=== PATIENT | female | born 1965 | race Caucasian/White ===

== ENCOUNTER → 2016-07-14 | Outpatient (CLI) | payer OTHER ==
[~2016-07-14] MED LIST: AMIT10TA6 PO; BUTA1CAP17 PO; CLIN1SOL23 TOP; CYCL10TA6 PO; FLUC150T PO; NAPR-1169 PO; RIZA10TA19 PO; SUMA20SP; XNX25 PO
--- NOTE | 2016-07-15 12:58 | MAMMOGRAPHY REPORT ---
BILATERAL DIGITAL SCREENING MAMMOGRAM TOMOSYNTHESIS WITH CAD: 07/14/2016 CLINICAL HISTORY: Routine screening. Patient has no complaints. TECHNIQUE: Breast tomosynthesis in addition to standard 2D mammography was performed. Current study was also evaluated with a Computer Aided Detection (CAD) system. COMPARISON: Comparison is made to exams dated: 08/10/2014 mammogram, 08/07/2014 mammogram, 05/26/2013 m ammogram, 05/10/2013 mammogram, 11/06/2011 mammogram, and 06/25/2010 mammogram. BREAST COMPOSITION: The tissue of both breasts is heterogeneously dense, which may obscure small ma sses. FINDINGS: There are multiple bilateral circumscribed masses scattered in the breasts. A dominant m ass in the superior left breast was previously documented to represent a cyst on ultrasound. There is a stable metallic biopsy marker in the left breast. However, there is a questionable area of architectural distortion in the lateral, middle to enter le ft breast, only seen on the CC view. Although this could represent normal overlapping tissue, addit ional spot compression tomosynthesis views and possibly ultrasound are recommended. No other suspicious mass, architectural distortion or cluster of microcalcifications is seen bilater ally. IMPRESSION: ACR BI-RADS CATEGORY 0: INCOMPLETE EVALUATION: NEED ADDITIONAL IMAGING EVALUATION The questionable area of architectural distortion in the lateral left breast needs additional evalua tion. The patient will be called to schedule an appointment. Approximately 10% of breast cancers are not detected with mammography. A negative mammographic repor t should not delay biopsy if a clinically suggestive mass is present. Hanna Roque M.D. ay/:07/14/2016 17:27:07 Special Education Inclusion Teacher: Lilly MEJIA(R)(M), [facility] letter sent: Addl Imaging 0 BI-RADS Code: ACR BI-RADS Category 0: Incomplete Evaluation: Need Additional Imaging Evaluation
== END | disposition home or self-care (01) ==
LOC: C.MAMM 14:59
PROVIDERS: ATTEND Family Medicine
DX: Z12.31 Encounter for screening mammogram for malignant neoplasm of breast (principal); N64.89 Other specified disorders of breast

== ENCOUNTER → 2016-07-23 | Outpatient (CLI) | payer OTHER ==
--- NOTE | 2016-07-23 12:55 | MAMMOGRAPHY REPORT ---
UNILATERAL LEFT DIGITAL DIAGNOSTIC MAMMOGRAM TOMOSYNTHESIS AND TARGETED LEFT ULTRASOUND: 07/23/2016 CLINICAL HISTORY: 51-year-old woman called back from screening mammography for possible architectural distortion in the lateral middle one third of the left breast, only seen on the CC view. TECHNIQUE: Spot compression left CC and MLO tomosynthesis images were obtained. COMPARISON: Comparison is made to exams dated: 07/14/2016 mammogram - [facility], mammogram, 08/07/2014 mammogram, 05/26/2013 mammogram, 05/10/2013 mammogram, and 11/06/2011 mammo gram. BREAST COMPOSITION: The tissue of the left breast is heterogeneously dense, which may obscure small masses. FINDINGS: The spot compression left CC view demonstrates effacement of the questionable architectural distortion in the lateral, middle one third of the breast. The pattern of the parenchyma based on t he spot compression CC view appears very similar to prior mammograms including the 2011 and 2009 exam s, suggesting it represents the patient's baseline. There is a stable ribbon shaped metallic biopsy marker in the left breast. A few partially circumscribed and obscured masses, the largest of which a re located in the superior breast likely representing cysts. No suspicious clustered microcalcificat ions are seen. Targeted ultrasound was performed of the lateral left breast. There are numerous scattered anechoic simple cysts, the largest of which is seen in the 6:00 left breast, 3 cm from the nipple, measuring 1 4 mm. No suspicious solid mass or focal area of architectural distortion is seen on ultrasound. IMPRESSION: ACR BI-RADS CATEGORY 2: BENIGN, TARGETED ULTRASOUND ACR BI-RADS CATEGORY 2: BENIGN There is effacement of the questionable architectural distortion in the lateral left breast with sheron tional supplemental tomosynthesis images, and no suspicious sonographic oral it was identified. Inci dental note is made of numerous cysts compatible with fibrocystic changes. There is no mammographic or targeted sonographic evidence of malignancy. Return to annual mammogram screening schedule is meño mmended. The patient has been verbally notified of the results. Approximately 10% of breast cancers are not detected with mammography. A negative mammographic report should not delay biopsy if a clinically suggestive mass is present. Hanna Roque M.D. ay/:07/23/2016 12:39:12 Planning Division Superintendent: Lilly MEJIA(R)(M), [facility] letter sent: Normal / BI-RADS Code: ACR BI-RADS Category 2: Benign Ultrasound BI-RADS: ACR BI-RADS Category 2: Benign
== END | disposition home or self-care (01) ==
LOC: C.MAMM 11:04
PROVIDERS: ATTEND Family Medicine
DX: N64.9 Disorder of breast, unspecified (principal)

== ENCOUNTER → 2016-08-28 | Day surgery (SDC) | payer OTHER ==
[2016-08-27 07:22] VITALS: Ht 171.5 cm; Wt 75.0 kg
[~2016-08-28] VITALS: Ht 171.5 cm; Wt 75.0 kg
[~2016-08-28] MED LIST changes: -NAPR-1169 PO; +PROPOFOL IV EMULSION 10 MG/ML 20 ML VIAL IV ONE
--- NOTE | 2016-08-28 08:56 | Endo History and Physical ---
History & Physical Date of Service: Aug 28, 2016. Chief Complaint: screening Referring Physician: Dr. Haezl Marie History of Present Illness 51 yo CF who presents for screening colonoscopy. Past Surgical History Hx Cardiac Surgery: No Hx Internal Defibrillator: No Hx Pacemaker: No Hx Abdominal Surgery: Yes (LAP OVARIAN CYST REMOVED) Hx of Implantable Prosthesis: No Hx Post-Op Nausea and Vomiting: No Hx Cancer Surgery: No Hx Thoracic Surgery: No Hx Orthopedic: No Hx Urinary Tract Surgery: No Family History None Social History Smoking Status: Former Smoker Hx Substance Use: No Hx Alcohol Use: Yes (social) Allergies Coded Allergies: Penicillins (Verified Allergy, Mild, STOMACH PAINS, 08/27/16) Uncoded Allergies: MOLD (Allergy, Unknown, 04/06/02) Current Medications Reported Home Medications Medications Dose Route/Sig Max Daily Dose Days Date Category Clindamycin Phosphate (Clindamycin Phosphate (Topical) 1 % Carrie 1 Appln TOP BID PRN 08/27/16 Reported Maxalt-Fern Picker (Rizatriptan Benzoate) 10 Mg Tab 10 Mg PO UD 11/06/15 Reported Imitrex Nasal Frost (Sumatriptan Succinate) 1 Frost/20 Mg Aers 1 Frost NA UD 11/06/15 Reported Diflucan (Fluconazole) 150 Mg Tab 150 Mg PO UD 11/06/15 Reported Flexeril (Cyclobenzaprine Hcl) 10 Mg Tab 10 Mg PO TID PRN 11/06/15 Reported Fioricet (Relagtqynx-Gabmdvwnhbkqp-Xlzmg) 1 Cap Cap 1-2 Cap PO Q4-6 HRS PRN 11/06/15 Reported Elavil (Amitriptyline Hcl) 10 Mg Tab 1 Tab PO HS PRN 11/06/15 Reported Alprazolam 0.25 Mg Tab 1 Tab PO TID PRN 11/06/15 Reported Vital Signs Weight (Kilograms): 75 Height (Feet): 5 Height (Inches): 7.5 Date Time Temp Pulse Resp B/P (MAP) Pulse Ox O2 Delivery O2 Flow Rate FiO2 08/28/16 08:44 36.9 76 20 123/80 (94) 97 Room Air Physical Exam General Appearance: WD/WN, no apparent distress Respiratory/Chest: Auscultation: breath sounds normal Cardiovascular: Heart Auscultation: RRR Abdomen: Bowel Sounds: normal Inspection & Palpation: soft, non-distended, no tenderness, guarding & rebound Assessment and Plan Assessment: 51 yo CF who presents for screening colonoscopy. Plan: Proceed with colonoscopy.
--- NOTE | 2016-08-28 10:02 | Discharge Instructions ---
Endoscopy Patient Instructions Date / Procedure(s) Performed Aug 28, 2016. Colonoscopy Allergy Information Coded Allergies: Penicillins (Verified Allergy, Mild, STOMACH PAINS, 08/27/16) Uncoded Allergies: MOLD (Allergy, Unknown, 04/06/02) Discharge Date / Findings Aug 28, 2016. Diverticulosis Internal hemorrhoids Medication Instructions OK to resume all medications today as prescribed Reported Home Medications Medications Dose Route/Sig Max Daily Dose Days Date Category Clindamycin Phosphate (Clindamycin Phosphate (Topical) 1 % Carrie 1 Appln TOP BID PRN 08/27/16 Reported Maxalt-Pediatric Nurse (Rizatriptan Benzoate) 10 Mg Tab 10 Mg PO UD 11/06/15 Reported Imitrex Nasal [place] (Sumatriptan Succinate) 1 [place]/20 Mg Aers 1 [place] NA UD 11/06/15 Reported Diflucan (Fluconazole) 150 Mg Tab 150 Mg PO UD 11/06/15 Reported Flexeril (Cyclobenzaprine Hcl) 10 Mg Tab 10 Mg PO TID PRN 11/06/15 Reported Fioricet (Rcsuhfylwb-Kdauuxdkcwsdf-Cdtoe) 1 Cap Cap 1-2 Cap PO Q4-6 HRS PRN 11/06/15 Reported Elavil (Amitriptyline Hcl) 10 Mg Tab 1 Tab PO HS PRN 11/06/15 Reported Alprazolam 0.25 Mg Tab 1 Tab PO TID PRN 11/06/15 Reported Provider Instructions Activity Restrictions - No exercising or heavy lifting for 24 hours. - Do not drink alcohol the day of the procedure. - Do not drive a car or operate machinery until the day after the procedure. - Do not make any important decisions or sign important papers in 24 hours after the procedure. Following Day: - Return to full activity which may include returning to work/school. Diet Start your diet with liquids and light foods (jello, soup, juice, toast). Then eat your usual diet if not nauseated. Treatment For Common After Affects For mild abdominal pain, bloating, or excessive gas: - Rest - Eat lightly - Lie on right side Follow-Up Information Follow-up with Dr. Hazel Marie as scheduled Anesthesia Information What You Should Know You have had a procedure that required some medicine to reduce anxiety and discomfort. This treatment is called moderate sedation. After receiving the treatment, you may be sleepy, but you will be able to breathe on your own. The effects of the treatment may last for several hours. Follow these instructions along with Activity/Diet recommendations noted above: * Do NOT do anything where dizziness or clumsiness would be dangerous. * Rest quietly at home today, then you can be up and about tomorrow. * Have a responsible person stay with you the rest of today. * You may have had an I.V. today. If so, you may take the dressing off later today. Recommendations Call your doctor if: * Trouble breathing * Continuous vomiting for more than 24 hours * Temperature above 101 degrees * Severe abdominal pain or bloating * Pain not relieved by pain medicine ordered * There is increased drainage or redness from any incision * A large amount of rectal bleeding greater than 2-3 tablespoons. (If you had a polyp/s removed or have hemorrhoids, a small amount of blood - from the rectum is to be expected.) * You have any unanswered questions or concerns. IN THE EVENT OF A SERIOUS EMERGENCY, GO TO THE NEAREST EMERGENCY ROOM Your discharge instructions were prepared by provider Jono Jones. Patient Instructions Signature Page Zena Desai Patient (or Guardian) Signature/Date: I have read and understand the instructions given to me by my caregivers. Caregiver/RN/Doctor Signature/Date: The above-named patient and/or guardian has received patient instructions on this date. + Original Patient Signature Page (only) stays with chart. Please make copy for patient.
--- NOTE | 2016-08-28 10:10 | Anesthesiology Progress Note ---
Anesthesia Post Op Note Date & Time Aug 28, 2016 at 10:10 Vital Signs Pain Intensity: 0 Vital Signs Past 12 Hours Date Time Temp Pulse Resp B/P (MAP) Pulse Ox O2 Delivery O2 Flow Rate FiO2 08/28/16 09:54 87 20 112/74 (87) 97 Room Air 08/28/16 08:44 36.9 76 20 123/80 (94) 97 Room Air Notes Mental Status: alert / awake / arousable, participated in evaluation Pt Amnestic to Procedure: Yes Nausea / Vomiting: adequately controlled Pain: adequately controlled Airway Patency, RR, SpO2: stable & adequate BP & HR: stable & adequate Hydration State: stable & adequate Anesthetic Complications: no major complications apparent
[2016-08-28 10:24] VITALS: BP 126/75; PULSE 60; O2SAT 100
--- NOTE | 2016-08-28 10:42 | GI REPORT ---
Procedure Date: 08/28/2016 8:55 AM Procedure: Colonoscopy Indications: High risk colon cancer surveillance: Personal history of colonic polyps Medicines: Monitored Anesthesia Care Complications: No immediate complications. Estimated Blood Loss: Estimated blood loss: none. Procedure: Pre-Anesthesia Assessment: - Prior to the procedure, a History and Physical was performed, and patient medications and allergies were reviewed. The patient's tolerance of previous anesthesia was also reviewed. The risks and benefits of the procedure and the sedation options and risks were discussed with the patient. All questions were answered, and informed consent was obtained. Prior Anticoagulants: The patient has taken no previous anticoagulant or antiplatelet agents. ASA Grade Assessment: II - A patient with mild systemic disease. After reviewing the risks and benefits, the patient was deemed in satisfactory condition to undergo the procedure. After I obtained informed consent, the scope was passed under direct vision. Throughout the procedure, the patient's blood pressure, pulse, and oxygen saturations were monitored continuously. The scope was introduced through the anus and advanced to the terminal ileum. The colonoscopy was performed without difficulty. The patient tolerated the procedure well. The quality of the bowel preparation was good. The terminal ileum, ileocecal valve, appendiceal orifice, and rectum were photographed. Findings: Multiple small-mouthed diverticula were found in the sigmoid colon. Non-bleeding external and internal hemorrhoids were found during retroflexion and during perianal exam. The hemorrhoids were small. Impression: - Diverticulosis in the sigmoid colon. - Non-bleeding external and internal hemorrhoids. - No specimens collected. Recommendation: - Resume previous diet. - Continue present medications. - Repeat colonoscopy in 5 years for surveillance. - Return to primary care physician as previously scheduled. Jono Jones DO 08/28/2016 10:01:29 AM This report has been signed electronically. Note Initiated On: 08/28/2016 8:55 AM I attest to the content of the Intraoperative Record and orders documented therein, exceptions below
== END | disposition home or self-care (01) ==
LOC: C.GI 08:22
PROVIDERS: ATTEND Internal Medicine
DX: Z12.11 Encounter for screening for malignant neoplasm of colon (principal); Z86.010 Personal history of colon polyps; K57.30 Diverticulosis of large intestine without perforation or abscess without bleeding; K64.8 Other hemorrhoids; K64.4 Residual hemorrhoidal skin tags; Z87.891 Personal history of nicotine dependence

== ENCOUNTER → 2016-12-10 | Outpatient (CLI) | payer OTHER ==
[~2016-12-10] MED LIST changes: -PROPOFOL IV EMULSION 10 MG/ML 20 ML VIAL IV ONE
[2016-12-10 11:39] LABS: CHOLESTEROL/HDL RATIO 2.7
== END | disposition home or self-care (01) ==
LOC: C.LABBC 07:54
PROVIDERS: ATTEND Family Medicine
DX: Z13.220 Encounter for screening for lipoid disorders (principal); Z13.1 Encounter for screening for diabetes mellitus

== ENCOUNTER → 2017-03-02 | Outpatient (CLI) | payer OTHER | END | disposition home or self-care (01) | LOC: C.PATHSPEC 16:40 | PROVIDERS: ATTEND Dermatology | DX: L57.0 Actinic keratosis (principal) ==

== ENCOUNTER → 2017-07-15 | Outpatient (CLI) | payer OTHER ==
--- NOTE | 2017-07-16 15:19 | MAMMOGRAPHY REPORT ---
BILATERAL DIGITAL SCREENING MAMMOGRAM TOMOSYNTHESIS WITH CAD: 07/15/2017 CLINICAL HISTORY: Routine screening. Patient has no complaints. TECHNIQUE: Breast tomosynthesis in addition to standard 2D mammography was performed. Current study was also evaluated with a Computer Aided Detection (CAD) system. COMPARISON: Comparison is made to exams dated: 07/23/2016 mammogram, 07/14/2016 mammogram - [facility], 08/10/2014 mammogram, 08/07/2014 mammogram, 05/26/2013 mammogram, and 05/10/2013 mammog juan. BREAST COMPOSITION: The tissue of both breasts is heterogeneously dense, which may obscure small mas ses. FINDINGS: No suspicious masses, calcifications, or areas of architectural distortion are noted in ei ther breast. There has been no significant interval change compared to prior exams. Numerous circums cribed benign-appearing masses are again noted within the left breast which are consistent with cysts , with multiple cysts seen on prior ultrasound exams. A biopsy clip is again noted within the left m edial breast. IMPRESSION: ACR BI-RADS CATEGORY 2: BENIGN There is no mammographic evidence of malignancy. A 1 year screening mammogram is recommended. The pa tient will receive written notification of the results. Approximately 10% of breast cancers are not detected with mammography. A negative mammographic report should not delay biopsy if a clinically suggestive mass is present. Adelita Alcocer M.D. ah/:07/15/2017 14:41:27 Development Technical Lead: Lilly Ngo RT(R)(M), [facility] letter sent: Normal 1/2 BI-RADS Code: ACR BI-RADS Category 2: Benign
== END | disposition home or self-care (01) ==
LOC: C.MAMM 10:20
PROVIDERS: ATTEND Family Medicine
DX: Z12.31 Encounter for screening mammogram for malignant neoplasm of breast (principal)